=== PATIENT | female | born 1960 | race African-American/Black ===

== ENCOUNTER 2017-05-15 09:41 | Emergency (ER) | payer BC, SELFPAY ==
[2017-05-15] MEDS ORDERED: Lidocaine 1% w/Epinephrine 1:100K 20 ML VIAL ONE (11:19)
== END 2017-05-15 12:21 | disposition home or self-care (01) ==
LOC: ERS 09:41
DX: L02.416 Cutaneous abscess of left lower limb (principal); L03.116 Cellulitis of left lower limb; I10 Essential (primary) hypertension
CPT/HCPCS: 10060; J2001

== ENCOUNTER 2017-05-19 16:12 | Inpatient (IN) | payer BC ==
[2017-05-19] MEDS ORDERED: ISOVUE-370 76%-LOCM 1 ML ONE (16:48)
[2017-05-19 16:53] LABS: #Basophils 0.1 thou/uL (0.0-0.2); #Eosinphils 0.1 thou/uL (0.0-0.7); #Lymphocytes 1.5 thou/uL (1.20-3.40); #Monocytes 0.6 thou/uL (0.11-0.59); #Neutrophils 4.9 thou/uL (1.40-6.50); %Eosinophils 1.4 % (0.0-10.0); %Lymphocytes 21.6 % (21.0-51.0); %Monocytes 7.8 % (0.0-10.0); %Neutrophils 68.2 % (42.0-75.0); Hemoglobin 12.6 g/dL (12.0-16.0); Mean Corpuscular HGB CONC 33.2 g/dL (32.0-36.0); Mean Corpuscular Hemoglobin 29.4 pg (27.0-31.0); Mean Corpuscular Volume 88.6 fl (81.0-99.0); Mean Platelet Volume 8.5 fL (7.4-10.4); Platelet Count 243 thou/uL (130-400); RBC Distribution Width 11.4 % (11.5-14.5); Red Blood Cell (RBC) Count 4.27 mill/uL (4.20-5.40); White Blood Cell (WBC) Count 7.2 thou/uL (4.8-10.8)
[2017-05-19 18:37] LABS: ALT (SGPT) 32 U/L (8-55); AST (SGOT) 27 U/L (5-34); Albumin 4.2 g/dL (3.5-5.0); Alkaline Phosphatase 100 U/L (40-150); Anion Gap 14 mmol/L (10-20); BUN (Urea Nitrogen) 17 mg/dL (9.8-20.1); Bilirubin, Total 0.9 mg/dL (0.2-1.2); Calc. Creatinine Clearance 0 mL/min (70-130); Calcium 9.9 mg/dL (7.8-10.44); Carbon Dioxide 25 mmol/L (22-29); Chloride 104 mmol/L (98-107); Estimated GFR-MDRD Greater than 90; Globulin 3.5 g/dL (2.4-3.5); Glucose 120 mg/dL (70-105); Potassium 3.6 mmol/L (3.5-5.1); Protein, Total 7.7 g/dL (6.0-8.3); Sodium 139 mmol/L (136-145)
[2017-05-19] MEDS ORDERED: Lidocaine 1% w/Epinephrine 1:100K 20 ML VIAL ONE (18:45)
[2017-05-19] MEDS ORDERED: cefTRIAXone\\ROCEPHIN 2 GM in Sodium Chloride 0.9% 100 ML IVPB SCH (19:45)
--- NOTE | 2017-05-19 21:11 | CT ---
CT LEFT THIGH PERFORMED WITH INTRAVENOUS CONTRAST ENHANCEMENT: 05/19/17 HISTORY: Left inner thigh abscess. It is more erythematous and edematous. There are fibromatous changes of the uterus noted. Small inguinal lymph nodes are noted probably reactive. There is edema changes associated with the area of incision and drainage along the medial aspect of t he upper thigh. There does not appear to be any significant fluid collection. There is some air densi ty seen along the tract from the skin surface. There is no deep intramuscular extension. The edema ch anges do extend along the medial aspect of the thigh to mid thigh. IMPRESSION: Patient is status post incision and drainage of a medial thigh abscess. No signs of any significant f luid collection. There are edema changes in this area. POS: GINA
[2017-05-19 21:42] LABS: Bilirubin Small (Negative); Blood, Urine Negative (Negative); Clarity CLEAR (Clear); Glucose, Urine (Dipstick) Negative (Negative); Leukocyte Trace (Negative); Nitrite Negative (Negative); Protein, Urine (Dipstick) Negative (Neg-Trace)
[2017-05-19 21:44] LABS: Bacteria/HPF None Seen HPF (None Seen); Hyaline Casts/LPF 4-6 HYALINE CAST LPF (0-3 Hyaline); Pathc Cast-AUWi Flag 1.21 (0-2.49); RBC/HPF 0-3 HPF (0-3); WBC/HPF 0-3 HPF (0-3)
[2017-05-19 21:46] LABS: Specific Gravity, Urine 1.058 (1.002-1.036)
[2017-05-19 22:47] VITALS: BMI 37.5
--- NOTE | 2017-05-19 23:08 | HP ---
PRIMARY CARE PHYSICIAN: [facility] call admission. REASON FOR ADMISSION: Left thigh abscess and surrounding cellulitis, failed outpatient therapy. HISTORY OF PRESENT ILLNESS: A 57-year-old -[place] female with history of hypertension who w as evaluated at [facility] for left thigh abscess. The patient has problem early this month, she was first time evaluated on 05/14, and subsequently she had re-evaluation on 05/15. She required I and D for large abscess and she was kept on Bactrim and rifampin. She was also given Keflex. The pa katie still has continuous drainage. Today, she went to [facility] for worsening surrounding eryth sabrina and drainage. The patient feels that swelling is reduced, but the erythema is getting worse. Sh e has more pain. She denies any fever or chills. Patient reports that lately she was on Bactrim as well as Cleocin without any improvement, and that is why she was sent to emergency room for further e valuation. REVIEW OF SYSTEMS: The following complete review of systems was negative, unless otherwise mentioned in the HPI or below: Constitutional: Weight loss or gain, ability to conduct usual activities. Sk in: Rash, itching. Eyes: Double vision, pain. ENT/Mouth: Nose bleeding, neck stiffness, pain, te nderness. Cardiovascular: Palpitations, dyspnea on exertion, orthopnea. Respiratory: Shortness of breath, wheezing, cough, hemoptysis, fever or night sweats. Gastrointestinal: Poor appetite, abdom inal pain, heartburn, nausea, vomiting, constipation, or diarrhea. Genitourinary: Urgency, frequenc y, dysuria, nocturia. Musculoskeletal: Pain, swelling. Neurologic/Psychiatric: Anxiety, depressio n. Allergy/Immunologic: Skin rash, bleeding tendency. ALLERGIES: PENICILLIN. CURRENT HOME MEDICATIONS: Cleocin 300 mg 3 times daily, Bactrim-DS 1 tablet twice daily. PAST MEDICAL HISTORY: Hypertension. PAST SURGICAL HISTORY: . PAST PSYCHIATRIC HISTORY: Reviewed and negative. SOCIAL HISTORY: Patient lives at home with the family. No history of tobacco, alcohol, or illicit d rug abuse. FAMILY HISTORY: No strong family history of premature coronary artery disease, stroke, or cancer. EMERGENCY ROOM COURSE: Patient is given vancomycin, Rocephin, and IV fluid. PHYSICAL EXAMINATION: VITAL SIGNS: Currently, blood pressure 154/79, pulse 83, respiratory rate 19, temperature 98.6, satu ration 98% on room air, weight 81.6 kilograms. GENERAL: Patient is currently alert, oriented, in no acute distress. HEAD: Normocephalic, atraumatic. EYES: Pupils round, reactive to light. Extraocular muscles intact. ENT: Oropharynx within normal limits. Moist mucous membranes. No oral lesions. No pharyngeal eryt adenike, no exudate. NECK: Supple, no JVD, no thyromegaly, no carotid bruit, no jugular venous distention. LUNGS: Clear to auscultation without any rhonchi or rales. CARDIAC: S1, S2 regular without any murmur. ABDOMEN: Obesity present. Bowel sounds present. Nontender, nondistended. No organomegaly, no mass . No suprapubic tenderness. BACK: Unremarkable, no CVA tenderness. EXTREMITIES: Upper extremity passive movement of all joints are normal. Lower extremity, 10 x 10-cm inner thigh cellulitis with inner thigh abscess. NEUROLOGIC: Nonfocal examination. SKIN: No skin rash other than cellulitis, inner aspect of the thigh. HEMATOLOGIC: No lymphadenopathy. PSYCHIATRIC: Normal affect. SIGNIFICANT LABORATORY AND DIAGNOSTIC DATA: CT lower extremity done in the emergency room, which jerry ws status post I and D of medial thigh abscess on the left thigh with surrounding cellulitis, small i nguinal lymph node noted. CBC: WBC 7.2, hemoglobin 12.6, platelet 243. Sodium 139, potassium 3.6, chloride 104, carbon dioxide 25, anion gap 14, BUN 17, creatinine 0.78, glucose 120, calcium 9.9. LF T: AST 27, ALT 32, alkaline phosphatase 100. Albumin 4.2. CRP 6.98. Urinalysis: Leukocyte estera se trace. ASSESSMENT AND PLAN: 1. Left thigh cellulitis with abscess, failed outpatient therapy. 2. Hypertension. 3. Suspected urinary tract infection. PLAN: 1. Full admission to medical floor. General surgery consult for evaluation of I&D. Wound care team consultation for wound care and empiric antibiotic therapy with vancomycin and Rocephin. Pain contr ol with morphine. Pharmacy will adjust vancomycin dose and will continue Rocephin 2 grams daily. 2. Send urine culture. We will monitor her vitals and start antihypertensives before discharge. 3. Deep venous thrombosis prophylaxis. Lovenox 40 mg subcutaneously daily. 4. Gastrointestinal prophylaxis. Pepcid 20 mg p.o. b.i.d. 5. Code status: The patient is FULL CODE. Patient does not have any surrogate decision maker. DISPOSITION PLAN: Based on clinical course. Plan of care discussed with the patient in detail in the emergency room.
[2017-05-19] MEDS ORDERED: HYDROcodone/Acetaminophen 10/325 mg Tablet PO PRN (23:26)
[2017-05-19] MEDS ORDERED: hydrALAZINE 20 MG/ML VIAL SLOW IVP PRN (23:26)
[2017-05-19] MEDS ORDERED: Ondansetron ODT 4 MG TAB PO PRN (23:26)
[2017-05-19] MEDS ORDERED: Ondansetron HCl/PF 4 MG/2 ML Vial IVP PRN (23:26)
[2017-05-19] MEDS ORDERED: Senokot 8.6 MG TAB PO PRN (23:26)
[2017-05-19] MEDS ORDERED: Morphine 5 MG/ML SYRINGE SLOW IVP PRN (23:26)
[2017-05-19] MEDS ORDERED: Milk Of Magnesia 30 ML UDCUP PO PRN (23:26)
[2017-05-19] MEDS ORDERED: Zolpidem Tartrate 5 MG TAB PO PRN (23:26)
[2017-05-19] MEDS ORDERED: Acetaminophen 325 MG TAB PO PRN (23:26)
[2017-05-19] MEDS ORDERED: Mag-Al 1200 mg/1200 mg/30 ML UDCUP PO PRN (23:26)
[2017-05-20] MEDS: Enoxaparin Sodium 40 MG/0.4 ML SYRINGE SC SCH (09:43)
[2017-05-20] MEDS: Famotidine 20 MG TAB PO SCH ×2 (09:43→20:55)
--- NOTE | 2017-05-20 11:01 | PDOC.PN ---
- Subjective Encounter Start Date: 05/20/17 Encounter Start Time: 10:59 Ms. Blanton does not have any complaints today. She is being seen in follow-up of left thigh abscess. She notes some continued pain in the area. - Objective Resuscitation Status: Resuscitation Status FULL:Full Resuscitation MAR Reviewed: Yes Vital Signs & Weight: Vital Signs (12 hours) Temp Pulse Resp BP Pulse Ox 05/20/17 08:00 98.1 F 68 18 145/61 H 96 05/20/17 04:47 98.5 F 81 16 129/69 96 05/20/17 01:58 98.2 F 84 16 95 05/20/17 00:00 98.2 F 84 16 123/53 L 96 Result Diagrams: 05/19/17 16:42 05/19/17 16:49 Phys Exam - Physical Examination HEENT: PERRLA Respiratory: no wheezing, no rales, no rhonchi, clear to auscultation bilateral Cardiovascular: RRR, no significant murmur Gastrointestinal: soft, non-tender, positive bowel sounds Musculoskeletal: no edema + abscess on the upper inner left thigh, induration with some warmth Dx/Plan (1) Abscess of left thigh Code(s): L02.416 - CUTANEOUS ABSCESS OF LEFT LOWER LIMB Status: Acute (2) Hypertension Code(s): I10 - ESSENTIAL (PRIMARY) HYPERTENSION Status: Acute - Plan * Abscess of the left thigh- continue Rocephin * Plan is for I&D tomorrow, by Dr. Muñoz * HTN- blood pressure is controlled.
--- NOTE | 2017-05-20 16:49 | CON ---
DATE OF CONSULTATION: 05/20/2017 CHIEF COMPLAINT: Abscess, left thigh. HISTORY OF PRESENT ILLNESS: The patient is a 57-year-old female with a 6-day history of a progressiv e infection left upper inner thigh, it is currently draining, no fever, no previous episodes. PAST MEDICAL HISTORY: Morbid obesity, hypertension. PAST SURGICAL HISTORY: section. MEDICATIONS: Atenolol, hydrochlorothiazide, amlodipine. ALLERGIES: PENICILLIN. FAMILY HISTORY: Mother had a CVA. Father of heart attack. SOCIAL HISTORY: She is single. She works at [employer]. No tobacco or alcohol. PHYSICAL EXAMINATION: VITAL SIGNS: Temperature 98, pulse 68, blood pressure 143/74. GENERAL: Obese female. She is currently eating a regular diet. HEENT: Unremarkable. LUNGS: Clear. HEART: Regular rate and rhythm. ABDOMEN: Soft, obese, nontender. She has a 5 cm swollen abscess in the upper inner left thigh, it i s currently draining through at least 2 sinus tracts. LABORATORY AND X-RAY FINDINGS: Her white count is 7.2, H and H 12 and 37, platelet count of 243. El ectrolytes show elevated glucose at 120, otherwise normal. ASSESSMENT: Left thigh abscess. PLAN: N.p.o. after midnight, I and D tomorrow.
[2017-05-20] MEDS: cefTRIAXone\\ROCEPHIN 2 GM in Sodium Chloride 0.9% 100 ML IVPB SCH (20:57)
[2017-05-21] MEDS ORDERED: Bupivacaine 0.25% HCL 30 ML VIAL ONE (06:48)
[2017-05-21] MEDS ORDERED: Lidocaine 2% w/Epinephrine 1:200K 20 ML VIAL ONE (06:48)
[2017-05-21] MEDS ORDERED: HYDROmorphone 0.5 MG/0.5 ML SYRINGE ONE (07:37)
[2017-05-21] MEDS ORDERED: Fentanyl 100 MCG/2 ML VIAL ONE (07:37)
[2017-05-21] MEDS ORDERED: HYDROcodone/Acetaminophen 10/325 mg Tablet PO PRN (08:28)
--- NOTE | 2017-05-21 08:42 | OP ---
PREOPERATIVE DIAGNOSIS: Abscess, left upper inner thigh. SURGEON: Ziyad Muñoz M.D. PROCEDURE PERFORMED: Incision and drainage and debridement. INDICATIONS: This is a 57-year-old female who came in with an infection in the upper inner thigh selma t was spontaneously draining. FINDINGS: There was about an 8 cm phlegmon of the upper inner thigh with 2 sinus tracts. The specim en contained an infected sebaceous cyst. DESCRIPTION OF PROCEDURE: After informed consent was obtained, patient was taken to the operating ro om and given general endotracheal anesthesia and placed in frogleg position. The area was prepped an d draped in the usual fashion. An elliptical incision was performed. The sinus tracts were excised. There was sebaceous material in the area that was all removed including the wall. Hemostasis achie hiram with electrocautery. The wound was irrigated and then wound was packed open with Betadine gauze. Patient tolerated the procedure well and transferred to recovery in good condition.
[2017-05-21] MEDS: Famotidine 20 MG TAB PO SCH ×2 (09:10→20:26)
[2017-05-21] MEDS: Enoxaparin Sodium 40 MG/0.4 ML SYRINGE SC SCH (09:10)
[2017-05-21] MEDS ORDERED: Ketorolac Tromethamine 30 MG/ML VIAL ONE (12:12)
[2017-05-21] MEDS ORDERED: Dexamethasone 20 MG/5 ML VIAL ONE (12:12)
[2017-05-21] MEDS ORDERED: Ondansetron HCl/PF 4 MG/2 ML Vial ONE (12:12)
[2017-05-21] MEDS ORDERED: Propofol 200 MG/20 ML VIAL ONE (12:12)
[2017-05-21] MEDS ORDERED: Lidocaine 1% PF 5 ML VIAL ONE (12:12)
--- NOTE | 2017-05-21 13:44 | PDOC.PN ---
- Subjective Encounter Start Date: 05/21/17 Encounter Start Time: 13:41 Ms. Blanton was seen today in follow-up. She does not have any complaints. She says she is feeling much better now. - Objective Resuscitation Status: Resuscitation Status FULL:Full Resuscitation MAR Reviewed: Yes Vital Signs & Weight: Vital Signs (12 hours) Temp Pulse Resp BP BP Pulse Ox 05/21/17 12:00 161/78 H 05/21/17 09:05 98.2 F 76 16 167/77 H 96 05/21/17 05:00 98.3 F 79 18 159/83 H 95 Weight Admit Weight 212 lb Weight 212 lb I&O: 05/20/17 05/21/17 05/22/17 06:59 06:59 06:59 Intake Total 150 Balance 150 Result Diagrams: 05/19/17 16:42 05/19/17 16:49 Phys Exam - Physical Examination HEENT: PERRLA Respiratory: no wheezing, no rales, no rhonchi, clear to auscultation bilateral Cardiovascular: RRR, no significant murmur, no rub Gastrointestinal: soft, non-tender, positive bowel sounds Musculoskeletal: no edema Dx/Plan (1) Abscess of left thigh Code(s): L02.416 - CUTANEOUS ABSCESS OF LEFT LOWER LIMB Status: Acute (2) Hypertension Code(s): I10 - ESSENTIAL (PRIMARY) HYPERTENSION Status: Acute - Plan * Right Thigh Abscess- Continue Rocephin IV * HTN- blood pressure is elevated - will re-start Amlodipine, and Atenolol, can likely re-start HCTZ in a few days * Await the wound culture results.
[2017-05-21] MEDS: cefTRIAXone\\ROCEPHIN 2 GM in Sodium Chloride 0.9% 100 ML IVPB SCH (20:25)
[2017-05-22] MEDS: Enoxaparin Sodium 40 MG/0.4 ML SYRINGE SC SCH (08:14)
[2017-05-22] MEDS: Atenolol 25 MG TAB PO SCH (08:14)
[2017-05-22] MEDS: Amlodipine 10 MG TAB PO SCH (08:14)
[2017-05-22] MEDS: Famotidine 20 MG TAB PO SCH ×2 (08:14→22:26)
[2017-05-22] MEDS: HYDROcodone/Acetaminophen 10/325 mg Tablet PO PRN ×3 (08:19→22:32)
--- NOTE | 2017-05-22 12:19 | PDOC.PN ---
- Subjective Encounter Start Date: 05/22/17 Encounter Start Time: 10:40 -: old records requested/rev Pt seen and examined, chart reviewed in its entirety, this is my first visit with this patient Vac placed earlier, glenn well, awaiting outpatient VAC rx. Cortes working on arranging PCP for patient to follow up with as an outpatinet no F/C, no N/V/d/C, glenn abx well 10 point ROS performed and neg for all systems except as above - Objective Resuscitation Status: Resuscitation Status FULL:Full Resuscitation MAR Reviewed: Yes Vital Signs & Weight: Vital Signs (12 hours) Temp Pulse Resp BP BP Pulse Ox 05/22/17 08:24 98.3 F 75 18 158/69 H 90 L 05/22/17 08:14 76 158/69 H 05/22/17 08:00 98.3 F 75 18 90 L 05/22/17 04:00 97.5 F L 80 16 143/79 H 97 Weight Admit Weight 212 lb Weight 212 lb I&O: 05/21/17 05/22/17 05/23/17 06:59 06:59 06:59 Intake Total 150 Balance 150 Result Diagrams: 05/19/17 16:42 05/19/17 16:49 Radiology Reviewed by me: Yes EKG Reviewed by me: Yes Phys Exam - Physical Examination Constitutional: NAD HEENT: PERRLA, moist MMs, sclera anicteric, oral pharynx no lesions Neck: no nodes, no JVD, supple, full ROM Respiratory: no wheezing, no rales, no rhonchi, clear to auscultation bilateral Cardiovascular: RRR, no significant murmur, no rub Gastrointestinal: soft, non-tender, no distention, positive bowel sounds Musculoskeletal: no edema, pulses present, edema present Neurological: non-focal, normal sensation, moves all 4 limbs Lymphatic: no nodes Psychiatric: normal affect, A&O x 3 Skin: no rash, normal turgor, cap refill <2 seconds Deviation from normal: VAC left medial thigh with trackpad to anterior, protected with mepilex Dx/Plan - Plan cont current plan of care, continue antibiotics, out of bed/ambulate, DVT proph w/lovenox * . home on po abx when VAC approved, follow up on cultures
[2017-05-22] MEDS: Sulfameth/Trimethoprim DS 800-160mg TAB PO SCH ×2 (14:41→22:26)
--- NOTE | 2017-05-22 14:55 | PQF ---
RACHEL CASPER PRADIP HINDS [id number] CLINICAL DOCUMENTATION IMPROVEMENT CLARIFICATION FORM: ICD-10 Updated PLEASE DO AN ADDENDUM TO THE PROGRESS NOTE WITH ANY DOCUMENTATION UPDATES OR ADDITIONS AND CARRY THROUGH TO DC SUMMARY. THANK YOU. DATE: 05-22-17 ATTN: DR. HINDS Please exercise your independent, professional judgment in responding to the clarification form. Clinical indicators are provided on the bottom of this form for your review Please check appropriate box(s) to clarify if the following diagnosis has been ruled in our ruled out: UTI [ ] Ruled in diagnosis [ ] Continue to treat [ ] Resolved [ ] Ruled out diagnosis [ ] Cannot rule out diagnosis [ ] Other diagnosis [ ] Unable to determine For continuity of documentation, please document condition throughout progress notes and discharge summary. Thank You. CLINICAL INDICATORS - SIGNS / SYMPTOMS / LABS LABS: UA - TRACE LEUKOCYTE ESTERASE H&P: SUSPECTED UTI RISK FACTORS ER: PATIENT REPORTS URINE IS ORANGE D/T ABX SHE HAS BEEN TAKING FOR WOUND BACTRIM AND CLEOCIN WITHOUT IMPROVEMENT TREATMENTS H&P: SEND URINE CULTURE - NO GROWTH AT 48 HOURS MAR: VANCOMYCIN IV 2-10 ROCEPHIN IV 2-10 / 2-12 BACTRIM DS PO 2-13 THANK YOU, JENNY (This form is maintained as a part of the permanent medical record) 2015 [employer]. All Rights Reserved Jenny Mcdonough RN, BS [email or web address]
[2017-05-22] MEDS: Cefdinir 300 MG CAP PO SCH (22:26)
[2017-05-23] MEDS: Enoxaparin Sodium 40 MG/0.4 ML SYRINGE SC SCH (08:31)
[2017-05-23] MEDS: Cefdinir 300 MG CAP PO SCH (08:32)
[2017-05-23] MEDS: Sulfameth/Trimethoprim DS 800-160mg TAB PO SCH (08:33)
[2017-05-23] MEDS: Atenolol 25 MG TAB PO SCH (08:33)
[2017-05-23] MEDS: Famotidine 20 MG TAB PO SCH (08:33)
[2017-05-23] MEDS: Amlodipine 10 MG TAB PO SCH (08:34)
[2017-05-23 12:25] VITALS: BP 144/74; TEMP 97.8
--- NOTE | 2017-05-23 14:26 | DIS ---
DATE OF ADMISSION: 05/19/2017 DATE OF DISCHARGE: 05/23/2017 DISCHARGE DIAGNOSES: 1. Left medial thigh cellulitis. 2. Status post incision and drainage of a left medial thigh abscess. 3. No urinary tract infection, ruled out. 4. Essential hypertension. 5. Nonhealing surgical wound. CONSULTATIONS: General surgery, Dr. Ziyad Muñoz on 05/20/2017. PROCEDURES: Incision and drainage and VAC placement, 05/21/2017. HISTORY AND PHYSICAL: Ms. Blanton is a 57-year-old female who presented in the [facility] department on 05/19/2017 for evaluation of left thigh abscess and cellulitis. She has been see n at an outside urgent care clinic around 05/14/2017 and on 05/15/2017. She required an I&D for a la rge abscess and was kept on Bactrim and rifampin. She was also given some Keflex. She continued to have some continuous drainage, went to [facility] the day [facility] for worsening and surroun ding erythema and drainage and increased pain. She was subsequently sent to our emergency department for evaluation. Here, she was admitted. We were called. HOSPITAL COURSE: The patient was seen and examined by Dr. Foster in the emergency department. Gene ral Surgery was consulted from the outside. The patient was then started initially on vancomycin, Ro cephin, and patient was admitted to the floor. Overnight, the patient did well and was seen by Dr. Muñoz on 05/20/2017 and prepared for surgery the following day. White blood cell count that was normal on admission and labs were normal on admission. On 05/21/2017, the patient was taken to the operating room for incision and drainage. At that time, she has been on antibiotics for almost 48 hours. Cultures remain negative. VAC was placed on 05/22/2017 and insurance approval for VAC was requested. On 05/23/2017, it was found that her insurance does not cover wound VAC, so arrangements were made fo r her to get the wound VAC that she had for about a week before switching wet to dry dressings. She is otherwise stable for discharge and was then transitioned to oral antibiotics and discharged ho nm in stable condition with outpatient followup. PHYSICAL EXAMINATION: The patient was seen and examined on the day of discharge Discharge plan and disposition were discussed with the patient [id number] at the bedside. DISCHARGE MEDICATIONS: 1. Omnicef 300 mg p.o. b.i.d. for 14 days. 2. Bactrim-DS 1 p.o. t.i.d. for 14 days. 3. HCTZ 25 mg daily. 4. Atenolol 25 mg daily. 5. Amlodipine 10 mg daily. FOLLOWUP APPOINTMENTS: 1. Primary care physician: The patient has none. Daughter was going to establish with one jamie ocasio. 2. Dr. Muñoz within a week. 3. Home health care for dressing changes. I believe she chose [facility]. DISCHARGE DIET: Heart healthy recommended. DISCHARGE ACTIVITY: As tolerated. DISCHARGE CONDITION: Good. DISPOSITION: Being discharged home via private vehicle.
== END 2017-05-23 13:52 | disposition home health service (06) | DRG 571 ==
LOC: ERS 16:12 → T4-B 22:36
PROVIDERS: ADMIT Internal Medicine; ATTEND Internal Medicine
PROC: 0JBM0ZZ Excision of Left Upper Leg Subcutaneous Tissue and Fascia, Open Approach (ICD-10-PCS; principal; 2017-05-21)
DX: L72.3 Sebaceous cyst (principal); L02.416 Cutaneous abscess of left lower limb; E66.01 Morbid (severe) obesity due to excess calories; L03.116 Cellulitis of left lower limb; I10 Essential (primary) hypertension; Z88.0 Allergy status to penicillin; Z68.37 Body mass index [BMI] 37.0-37.9, adult
CPT/HCPCS: 36415; 80053; 81003; 81015; 85025; 86140; 87040; 87070; 87076; 87086; 87205; 96365; 96367; J2270; A4216; J0696; J1100; J1170; J1650; J1885; J2001; J2405; J2704; J3010; J3370; J7050; S0020

== ENCOUNTER 2017-06-13 08:43 | Outpatient (CLI) | payer BC ==
[2017-06-13] MEDS ORDERED: Lidocaine 2% Jelly 5 ML TUBE ONE (09:00)
[2017-06-13] MEDS ORDERED: Sodium Chloride 0.9% 15 ML NEB ONE (09:00)
--- NOTE | 2017-06-13 10:50 | HP ---
HISTORY OF PRESENT ILLNESS: Ms. Kait Blanton is a very pleasant 57-year-old who presents to [facility] for evaluation of a wound of the left medial thigh subsequent to incision and drainage and debridement for a left upper inner thigh abscess on 05/21/2017. Also at the time of surgery, [facility] patient underwent wound VAC placement. The patient underwent the preceding procedure by Dr. Ziyad longoria. The patient states that negative pressure therapy has been discontinued by Home Health. The p atient states that she has been performing wet to dry dressing changes for the wound of her left medi al thigh. Ms. Blanton has no complaints today. She denies any fever or chills. PAST MEDICAL HISTORY: 1. Hypertension. 2. Iron deficiency anemia. PAST SURGICAL HISTORY: 1. x1. 2. Exploratory laparotomy. 3. Incision and drainage and debridement for left upper inner thigh abscess on 05/21/2017. MEDICATIONS: 1. Atenolol. 2. HCTZ. 3. Amlodipine. 4. Multivitamin. ALLERGIES: No known diagnosed allergies. SOCIAL HISTORY: Negative for tobacco or ETOH use. FAMILY HISTORY: Significant for coronary artery disease. The patient states that her father was rafael gnosed with coronary artery disease. PHYSICAL EXAMINATION: VITAL SIGNS: Temperature 97.5, pulse 80, respirations 18, blood pressure 134/63. GENERAL: A 57-year-old female lying on table in examination room in no acute distress. HEENT: Normocephalic, atraumatic. NECK: No nuchal rigidity. CHEST: Clear to auscultation. CARDIOVASCULAR: Regular rate and rhythm. ABDOMEN: Soft. EXTREMITIES: A wound of the left medial thigh is present which measures approximately 6.0 x 1.5 cm. Granulation tissue is present within the wound margins. Necrotic and nonviable tissue present withi n the wound margins was debrided with an excisional full-thickness debridement with the use of a cure tte. No purulent drainage is associated with the wound. No erythema of the skin surrounding the wou nd is present. No maceration of the skin of the periwound is noted. NEUROLOGIC: Grossly nonfocal. ASSESSMENT AND PLAN: 1. Left medial thigh wound subsequent to incision and drainage and debridement for a left upper inne r thigh abscess on 05/21/2017. At the time of surgery, the patient also underwent wound VAC placemen t. As stated above, negative pressure therapy patient states was discontinued by home health and the patient has been performing wet to dry dressing changes for her left medial thigh wound herself. Dr mercado changes of [place] will be initiated today, 4 x 4s and an ABD secured with tape will be util ized as secondary dressings. The patient states she has an appointment to see Dr. Muñoz in the near future. I will see Ms. Blanton again in two weeks. 2. Hypertension. 3. Iron deficiency anemia.
== END 2017-06-13 08:44 | disposition home or self-care (01) ==
LOC: WCC 08:43
PROVIDERS: ATTEND Family Medicine
DX: T81.89XD Other complications of procedures, not elsewhere classified, subsequent encounter (principal); D50.9 Iron deficiency anemia, unspecified; I10 Essential (primary) hypertension
CPT/HCPCS: 11042; 99203; A4218; G0463

== ENCOUNTER 2017-09-18 15:19 | Emergency (ER) | payer BC ==
--- NOTE | 2017-09-18 16:44 | ULT ---
VENOUS DOPPLER ULTRASOUND LEFT LOWER EXTREMITY; 09/18/17 HISTORY: Lower leg edema and pain. TECHNIQUE: Mcallister scale, color flow and spectral doppler imaging of the deep venous system of the left lower extre mity is performed. FINDINGS: There is flow, compression and augmentation noted in the deep veins of the left lower extremity inclu ding the common femoral, femoral, deep femoral, popliteal, posterior tibial and greater saphenous vei ns. IMPRESSION: No evidence of DVT in the left lower extremity. POS: [facility]
== END 2017-09-18 16:12 | disposition home or self-care (01) ==
LOC: ERS 15:19
DX: M25.562 Pain in left knee (principal); I10 Essential (primary) hypertension; Z79.899 Other long term (current) drug therapy

== ENCOUNTER 2017-11-14 13:13 | Emergency (ER) | payer BC ==
--- NOTE | 2017-11-14 14:40 | ULT ---
VENOUS DOPPLER ULTRASOUND OF LEFT LOWER EXTREMITY: Date: 11/14/17 HISTORY: Left lower extremity pain. TECHNIQUE: Mcallister scale ultrasound with color flow and spectral Doppler imaging of the deep venous system of the l eft lower extremity performed. FINDINGS: There is good flow, compression, and augmentation noted in the left common femoral, femoral, deep fem oral, and posterior tibial veins. 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 IMPRESSION: 1. No evidence of deep venous thrombosis in the left lower extremity. 2. Foster's cyst. POS: OFF
== END 2017-11-14 16:01 | disposition home or self-care (01) ==
LOC: ERS 13:13
DX: M71.22 Synovial cyst of popliteal space [Baker], left knee (principal); M79.662 Pain in left lower leg; R60.0 Localized edema; I10 Essential (primary) hypertension; Z79.899 Other long term (current) drug therapy

== ENCOUNTER 2018-01-07 19:31 | Observation (INO) | payer BC ==
[~2018-01-07 19:31] MED LIST: ISOVUE-370 76%-LOCM 1 ML ONE
[2018-01-07 20:28] LABS: #Basophils 0.1 thou/uL (0.0-0.2); #Eosinphils 0.1 thou/uL (0.0-0.7); #Monocytes 0.3 thou/uL (0.11-0.59); #Neutrophils 4.4 thou/uL (1.40-6.50); %Basophils 1.1 % (0.0-1.0); %Eosinophils 1.1 % (0.0-10.0); %Lymphocytes 29.2 % (21.0-51.0); %Monocytes 4.6 % (0.0-10.0); Hemoglobin 12.9 g/dL (12.0-16.0); Mean Corpuscular Hemoglobin 28.6 pg (27.0-31.0); Mean Corpuscular Volume 86.6 fL (78.0-98.0); Platelet Count 258 thou/uL (130-400); RBC Distribution Width 11.7 % (11.5-14.5); Red Blood Cell (RBC) Count 4.51 mill/uL (4.20-5.40); White Blood Cell (WBC) Count 6.8 thou/uL (4.8-10.8)
--- NOTE | 2018-01-07 20:28 | RAD ---
FRONTAL VIEW CHEST: INDICATIONS: Chest pain. COMPARISON: 07/27/2014 FINDINGS: Bilateral perihilar interstitial opacities are seen, without lobar consolidation, effusion, or pneumo thorax. The cardiac silhouette is stable. IMPRESSION: Bilateral interstitial perihilar opacities may relate to bronchiolitis or edema. Correlate clinicall y. Imaging followup may be obtained to confirm resolution. POS: [facility]
[2018-01-07] MEDS ORDERED: Aspirin 325 MG TAB ONE (20:46)
[2018-01-07] MEDS ORDERED: Nitroglycerin 2% Ointment 1 INCH/1 GM Packet ONE (20:50)
[2018-01-07 20:52] LABS: ALT (SGPT) 16 U/L (8-55); AST (SGOT) 16 U/L (5-34); Albumin 4.3 g/dL (3.5-5.0); Alkaline Phosphatase 109 U/L (40-150); Anion Gap 12 mmol/L (10-20); BUN (Urea Nitrogen) 16 mg/dL (9.8-20.1); Bilirubin, Total 0.4 mg/dL (0.2-1.2); CK (CPK) 171 U/L (29-168); Calc. Creatinine Clearance 0 mL/min (70-130); Calcium 8.9 mg/dL (7.8-10.44); Carbon Dioxide 28 mmol/L (22-29); Chloride 106 mmol/L (98-107); Estimated GFR-MDRD Greater than 90; Globulin 3.1 g/dL (2.4-3.5); Glucose 94 mg/dL (70-105); Lipase 18 U/L (8-78); Potassium 3.5 mmol/L (3.5-5.1); Protein, Total 7.4 g/dL (6.0-8.3); Sodium 142 mmol/L (136-145)
[2018-01-07 21:07] LABS: CKMB 1.7 ng/mL (0-6.6); Troponin I Less than 0.010 ng/mL (< 0.028)
[2018-01-07] MEDS ORDERED: Morphine 4 MG/ML VIAL ONE ×2 (22:12)
--- NOTE | 2018-01-07 22:37 | CT ---
CTA CHEST WITH 3D VOLUME RENDERING: INDICATIONS: Chest pain. FINDINGS: There is no large central filling defect of the pulmonary arteries. There is mild atelectasis of eac h lung present. There is no consolidation, effusion, or pneumothorax. The thoracic aorta is normal in caliber. Scattered hyperdensities of the partially imaged liver may relate to cysts, although are incompletely assessed. No acute osseous pathology. IMPRESSION: 1. No acute pulmonary embolus. 2. Incidental note of left adrenal mass, demonstrating stability in volume to a 12/09/2008 CT abdome n examination, at which time the finding demonstrated density compatible with benign adenoma. 3. Probable hepatic cyst formation, although incompletely assessed. POS: [facility]
[2018-01-07] MEDS ORDERED: Acetaminophen 325 MG TAB PO PRN (23:42)
[2018-01-08 00:04] LABS: Troponin I 0.015 ng/mL (< 0.028)
[2018-01-08 00:06] VITALS: BMI 38.9
[2018-01-08 04:40] LABS: #Lymphocytes 1.2 thou/uL (1.20-3.40); #Monocytes 0.4 thou/uL (0.11-0.59); %Basophils 0.3 % (0.0-1.0); %Eosinophils 0.4 % (0.0-10.0); %Lymphocytes 18.5 % (21.0-51.0); %Monocytes 5.8 % (0.0-10.0); %Neutrophils 75.1 % (42.0-75.0); Mean Corpuscular HGB CONC 32.3 g/dL (32.0-36.0); Mean Corpuscular Hemoglobin 28.3 pg (27.0-31.0); Mean Corpuscular Volume 87.5 fL (78.0-98.0); Mean Platelet Volume 8.8 fL (7.4-10.4); Platelet Count 241 thou/uL (130-400); RBC Distribution Width 11.7 % (11.5-14.5); Red Blood Cell (RBC) Count 4.23 mill/uL (4.20-5.40); White Blood Cell (WBC) Count 6.6 thou/uL (4.8-10.8)
[2018-01-08 04:56] LABS: Anion Gap 12 mmol/L (10-20); BUN (Urea Nitrogen) 12 mg/dL (9.8-20.1); Calc. Creatinine Clearance 143 mL/min (70-130); Calcium 9.4 mg/dL (7.8-10.44); Carbon Dioxide 24 mmol/L (22-29); Chloride 106 mmol/L (98-107); Estimated GFR-MDRD Greater than 90; Glucose 131 mg/dL (70-105); Potassium 3.4 mmol/L (3.5-5.1); Sodium 139 mmol/L (136-145)
[2018-01-08] MEDS ORDERED: Aspirin 325 MG TAB PO SCH (09:00)
[2018-01-08] MEDS ORDERED: Enoxaparin Sodium 40 MG/0.4 ML SYRINGE SC SCH (09:00)
[2018-01-08 11:02] LABS: Cardiac Risk 3.6 (Less than 4.5)
--- NOTE | 2018-01-08 11:12 | HP ---
REASON FOR ADMISSION: Chest pain. HISTORY OF PRESENT ILLNESS: The patient gives history of having retrosternal chest pain, which start ed around 10:00 a.m. She was washing and folding clothes. This was associated with sweating. The p ain was 10/10 in intensity. The patient sat down for 15 minutes and this eased off, but then the pat lindsey has had nearly 4 such episodes come on after that. All of this concerned her, hence came to [facility]. No cough or expectoration. No history of fever. No complaints of palpitations, PND or orthopnea. She does mention that she has had a stress test more than 5 years ago, which was normal as far she can remember. PAST MEDICAL AND SURGICAL HISTORY: Hypertension, x1, left leg surgery. CURRENT MEDICATIONS: Hydrochlorothiazide 25 mg daily, atenolol 25 mg daily, Norvasc 10 mg daily. ALLERGIES: Allergic to PENICILLIN. PERSONAL HISTORY: Does not abuse alcohol or drugs. No history of smoking. Works at [employer] . FAMILY HISTORY: Mother is currently in a half-way. She has had a stroke. Father of massiv e [place] at the age of 49 years. CODE STATUS: FULL. Power of dog track kennel manager is her son, Mr. Ephraim López. REVIEW OF SYSTEMS: The following complete review of systems was negative, unless otherwise mentioned in the HPI or below: Constitutional: Weight loss or gain, ability to conduct usual activities. Skin: Rash, itching. Eyes: Double vision, pain. ENT/Mouth: Nose bleeding, neck stiffness, pain, tenderness. Cardiovascular: Palpitations, dyspnea on exertion, orthopnea. Respiratory: Shortness of breath, wheezing, cough, hemoptysis, fever or night sweats. Gastrointestinal: Poor appetite, abdominal pain, heartburn, nausea, vomiting, constipation, or diarr hea. Genitourinary: Urgency, frequency, dysuria, nocturia. Musculoskeletal: Pain, swelling. Neurologic/Psychiatric: Anxiety, depression. Allergy/Immunologic: Skin rash, bleeding tendency. PHYSICAL EXAMINATION: GENERAL: The patient is a 57-year-old female who is currently not in any acute distress. VITAL SIGNS: Blood pressure 186/80, pulse 90 per minute, respiratory rate 16 per minute, temperature 97.6 degrees Fahrenheit, saturating 94% on room air. NECK: Supple, no elevated JVD. HEENT: Eyes: Extraocular muscles intact. Pupils reacting to light. Oral cavity mucous membranes a re moist. No exudates or congestion. CARDIOVASCULAR: S1, S2 heard. Regular rhythm. RESPIRATORY: Air entry 2+ bilateral. No rales or rhonchi. ABDOMEN: Soft, bowel sounds heard. No tenderness, rigidity or guarding. EXTREMITIES: No peripheral edema or calf tenderness. VASCULAR SYSTEM: Peripheral pulses 2+ bilateral, no ischemic ulcerations or gangrene. CENTRAL NERVOUS SYSTEM: No gross focal deficits noted. Patient is alert, awake, oriented well. PSYCHIATRIC: The patient's mood is euthymic. No hallucinations or delusions. LABORATORY DATA AND X-RAY FINDINGS: EKG done shows normal sinus rhythm at 89 beats per minute, no gr oss ST-T wave changes. CT angio chest done shows no pulmonary embolus. There is incidental note of left adrenal mass, which demonstrated stability when compared to prior CAT scan done in 12/2008. Whi te count of 6, H&H is 12 and 39, platelet count 258 with 64% neutrophils, MCV is 86. Electrolytes st able. BUN 16, creatinine 0.7, glucose 94. Liver enzymes within normal limits. Troponin x3 is negat ever. CK-MB 1.7. BNP is 14, albumin is 4.3, lipase is 18. CLINICAL IMPRESSION AND PLAN: The patient will be under observation on telemetry for chest pain, rul e out acute coronary syndrome. We will continue her Norvasc, atenolol and hydrochlorothiazide as bef ore and place her on aspirin 325 mg p.o. daily. We will follow acute coronary syndrome evidence base d protocol. She will have a nuclear stress test done. Patient's symptoms are concerning for acute c oronary syndrome. She is kept n.p.o. for now. If her stress test is normal, she will be discharged home on her current home medications. Also, obtain a lipid profile.
[2018-01-08 12:18] VITALS: BP 165/75; TEMP 98
--- NOTE | 2018-01-08 12:22 | NM ---
CARDIAC SPECT: HISTORY: A 57-year-old female with chest pain and hypertension. TECHNIQUE: A stress-only myocardial perfusion scan was performed following the intravenously administration of 30 mCi Technetium 99m sestamibi. Pharmacologic stress with adenosine was monitored and interpreted b genesis Regalado. FINDINGS: Homogeneous tracer distribution is seen in the myocardial segments on the post-stress images. GATED SPECT LVEF: 68%. WALL MOTION EXAM: Normal. IMPRESSION: Normal post-stress myocardial perfusion scan. POS: GINA
[2018-01-08] MEDS ORDERED: Hydrochlorothiazide 25 MG TAB PO SCH (12:30)
[2018-01-08] MEDS ORDERED: Atenolol 25 MG TAB PO SCH (12:30)
[2018-01-08] MEDS ORDERED: Amlodipine 10 MG TAB PO SCH (12:30)
[2018-01-08] MEDS ORDERED: ADENOSINE 60 MG/20 ML VIAL ONE (15:39)
[2018-01-09] MEDS ORDERED: Atenolol 25 MG TAB PO SCH (09:00)
[2018-01-09] MEDS ORDERED: Amlodipine 10 MG TAB PO SCH (09:00)
[2018-01-09] MEDS ORDERED: Hydrochlorothiazide 25 MG TAB PO SCH (09:00)
--- NOTE | 2018-01-12 18:11 | EKG ---
Test Reason : Blood Pressure : / mmHG Vent. Rate : 089 BPM Atrial Rate : 089 BPM P-R Int : 204 ms QRS Dur : 078 ms QT Int : 380 ms P-R-T Axes : 059 -11 046 degrees QTc Int : 462 ms Normal sinus rhythm Normal ECG Confirmed by ABHILASH BOLIVAR MD ([id number]), editor & co founder DAKOTAH BAILEY ([id number]) on 01/12/2018 6:10:47 PM Referred By: Confirmed By:ABHILASH BOLIVAR MD
== END 2018-01-08 13:49 | disposition home or self-care (01) ==
LOC: ERS 19:31 → 2SW 23:00
PROVIDERS: ADMIT Hospitalist; ATTEND Hospitalist
DX: R07.2 Precordial pain (principal); I10 Essential (primary) hypertension; Z79.899 Other long term (current) drug therapy; Z88.0 Allergy status to penicillin
CPT/HCPCS: 36415; 71045; 71275; 78452; 80048; 80053; 80061; 82550; 82553; 83690; 83880; 84484; 85025; 85379; 90471; 90686; 93005; 93017; 94760; 96374; A9500; G0008; G0378; J0153; J1650; J2270

== ENCOUNTER 2018-01-16 17:04 | Emergency (ER) | payer BC ==
[2018-01-16] MEDS ORDERED: Ketorolac Tromethamine 30 MG/ML VIAL ONE (18:23)
== END 2018-01-16 18:46 | disposition home or self-care (01) ==
LOC: ERS 17:04
DX: M71.22 Synovial cyst of popliteal space [Baker], left knee (principal); G89.29 Other chronic pain; I10 Essential (primary) hypertension; Z79.899 Other long term (current) drug therapy
CPT/HCPCS: 96372; J1885

== ENCOUNTER 2018-02-05 08:40 | Day surgery (SDC) | payer BC, MEDICARE ==
[2018-02-05 09:27] LABS: #Lymphocytes 0.6 thou/uL (1.20-3.40); #Monocytes 0.3 thou/uL (0.11-0.59); #Neutrophils 8.1 thou/uL (1.40-6.50); %Eosinophils 0.1 % (0.0-10.0); %Lymphocytes 6.3 % (21.0-51.0); %Neutrophils 90.6 % (42.0-75.0); Mean Corpuscular HGB CONC 30.5 g/dL (32.0-36.0); Mean Corpuscular Hemoglobin 26.4 pg (27.0-31.0); Mean Corpuscular Volume 86.6 fL (78.0-98.0); Mean Platelet Volume 8.2 fL (7.4-10.4); Platelet Count 278 thou/uL (130-400); RBC Distribution Width 11.5 % (11.5-14.5); Red Blood Cell (RBC) Count 4.91 mill/uL (4.20-5.40)
[2018-02-05 09:49] LABS: ALT (SGPT) 262 U/L (8-55); AST (SGOT) 452 U/L (5-34); Albumin 4.5 g/dL (3.5-5.0); Alkaline Phosphatase 116 U/L (40-150); Anion Gap 13 mmol/L (10-20); BUN (Urea Nitrogen) 11 mg/dL (9.8-20.1); Bilirubin, Total 1.2 mg/dL (0.2-1.2); Calc. Creatinine Clearance 0 mL/min (70-130); Calcium 9.7 mg/dL (7.8-10.44); Carbon Dioxide 27 mmol/L (22-29); Chloride 104 mmol/L (98-107); Estimated GFR-MDRD Greater than 90; Globulin 3.3 g/dL (2.4-3.5); Glucose 139 mg/dL (70-105); Lipase 18 U/L (8-78); Potassium 3.2 mmol/L (3.5-5.1); Protein, Total 7.8 g/dL (6.0-8.3); Sodium 141 mmol/L (136-145)
[2018-02-05 10:01] LABS: CKMB 1.6 ng/mL (0-6.6); Troponin I 0.017 ng/mL (< 0.028)
[2018-02-05 10:40] LABS: PTT 30.6 SEC (22.9-36.1); Prothrombin Time 13.7 SEC (12.0-14.7)
[2018-02-05 10:49] LABS: Bilirubin Negative (Negative); Blood, Urine Negative (Negative); Clarity CLOUDY (Clear); Glucose, Urine (Dipstick) Negative (Negative); Leukocyte Trace (Negative); Nitrite Negative (Negative); Protein, Urine (Dipstick) Negative (Neg-Trace); Specific Gravity, Urine 1.011 (1.002-1.036)
[2018-02-05 10:51] LABS: Bacteria/HPF 1+ HPF (None Seen); Hyaline Casts/LPF 0-3 HYALINE CAST LPF (0-3 Hyaline); Pathc Cast-AUWi Flag 0.43 (0-2.49)
[2018-02-05] MEDS ORDERED: Ketorolac Tromethamine 30 MG/ML VIAL ONE (10:54)
[2018-02-05 10:56] LABS: Renal Epithelial None Seen HPF (0-3); Transitional Epithelial NONE SEEN HPF (0-3)
--- NOTE | 2018-02-05 10:56 | ULT ---
RIGHT UPPER QUADRANT ULTRASOUND: HISTORY: A 57-year-old female with a history of right upper quadrant pain and nausea and vomiting. FINDINGS: Liver echogenicity appears to be within normal limits. There are several shadowing stones within the gallbladder, as well as one nonshadowing opacity, which appears to be attached to the wall, probably a polyp. No gallbladder wall thickening or pericholecystic fluid. The common bile duct is dilated at 0.9 cm. The gallbladder is borderline distended. No significant intrahepatic ductal dilatation. IMPRESSION: Several gallstones within the gallbladder, which is mildly distended, as well as a dilated common stuart e duct, without significant intrahepatic ductal dilatation. In addition to the gallstones, there is probably also a small polyp or adherent stone. No other significant acute process. POS: GINA
--- NOTE | 2018-02-05 14:15 | HP ---
HISTORY OF PRESENT ILLNESS: A 57-year-old black female who presented in the Emergency Room because o f right upper quadrant pain, nausea. Ultrasound revealed gallstones with a 9 mm bile duct, elevated transaminase in upper limits, normal bilirubin. I have been called by Dr. Spaulding. Patient denies pr ior biliary symptoms, although she has been having some bloating and belching in the past. Plan is f or laparoscopic video cholecystectomy, cholangiogram, possible ERCP if indicated. She might be able to be discharged home today pending operative outcome. ALLERGIES: PENICILLIN. TOBACCO: None. ALCOHOL: None. MEDICATIONS: Hydrochlorothiazide, atenolol, amlodipine. PRIMARY CARE PHYSICIAN: Dr. Ceja. PAST MEDICAL HISTORY: Hypertension. PAST SURGICAL HISTORY: . REVIEW OF SYSTEMS: Ten point noncontributory. FAMILY HISTORY: Noncontributory. SOCIAL HISTORY: Patient works for [employer]. She is single, although her son lives with her. PHYSICAL EXAMINATION: VITAL SIGNS: Blood pressure 150/78, respiratory rate 18, heart rate 74. HEENT: Unremarkable. LUNGS: Clear to auscultation. CARDIAC: Regular rate and rhythm without murmur or gallop. ABDOMEN: Soft, tenderness in right upper quadrant with guarding and positive Wang sign. EXTREMITIES: Unremarkable. LABORATORY: White count 9, hemoglobin 13, bilirubin 1.2, AST 452, ALT 262, alkaline phosphatase 116. Ultrasound: Cholelithiasis, mildly distended gallbladder, mildly dilated common bile duct without intrahepatic ductal dilatation, 9 mm bile duct. ASSESSMENT: Cholecystitis, cholelithiasis, possible choledocholithiasis. PLAN: 1. Laparoscopic cholecystectomy, cholangiograms and consultation with Gastroenterology if indicated. Dr. Fitzpatrick is on-call. 2. Hypertension.
[2018-02-05] MEDS ORDERED: Iothalamate Meglumine 60% 50 ML VIAL FS ONE (14:18)
[2018-02-05] MEDS ORDERED: Bupivacaine HCl 0.5%/Epinephrine 1:200,000/PF 30 ml Vial ONE (14:18)
[2018-02-05] MEDS ORDERED: Scopolamine 1.5 mg/72 hour Patch ONE (14:38)
[2018-02-05] MEDS ORDERED: Fentanyl 100 MCG/2 ML VIAL ONE (17:08)
[2018-02-05] MEDS ORDERED: Dexamethasone 20 MG/5 ML VIAL ONE (17:46)
[2018-02-05] MEDS ORDERED: Lidocaine 1% PF 5 ML VIAL ONE (17:46)
[2018-02-05] MEDS ORDERED: PROPOFOL 200 MG/20 ML VIAL ONE (17:46)
[2018-02-05] MEDS ORDERED: PHENYLEPHRINE-NS 100 MCG/ML 10 ML SYRINGE ONE (17:46)
[2018-02-05] MEDS ORDERED: Glycopyrrolate 0.2 MG/ML 5 ML SYRINGE ONE (17:46)
[2018-02-05] MEDS ORDERED: Ondansetron PF 4 MG/2 ML Vial ONE (17:46)
--- NOTE | 2018-02-06 08:30 | OP ---
DATE: 02/05/2018 PREOPERATIVE DIAGNOSES: Acute cholecystitis, cholelithiasis, elevated liver function test, bile duct 9 mm. POSTOPERATIVE DIAGNOSES: Acute cholecystitis, cholelithiasis, elevated liver function test, bile kendra t 9 mm. PROCEDURE: Laparoscopic video cholecystectomy, negative intraoperative cholangiograms. Fluoroscopy used. SURGEON: Jose Paz M.D. ANESTHESIA: General. Local 0.5% Marcaine with epinephrine 30 mL PROCEDURE IN DETAIL: The patient was taken to the operating room under general anesthesia, abdomen w as prepared with ChloraPrep, draped in routine fashion. Because of an infraumbilical periumbilical i ncision, right midclavicular subcostal was incision made and pneumoperitoneum to 15 mmHg were obtaine d with the Veress needle, replacing it with a 5 port and laparoscope inserted. Periumbilical area wa s free of adhesions. Infraumbilical incision was made and a 5 port placed and video laparoscope move d to this port. Right subxiphoid incision made and 11 port placed. Right lateral subcostal incision made and a 5 port placed. Liver appeared to be normal. Gallbladder was distended, thickened wall i nflamed. Fundus of gallbladder grasped and reflected cephalad. Infundibulum grasped and reflected l aterally. Cystic artery and duct dissected free. Critical view obtained. Cystic artery double clip ped proximally. Cystic duct singly clipped on the gallbladder side. Opening made in the cystic duct . Cholangiocath inserted and cholangiogram was obtained using fluoroscopy revealing free flow of cont rast into the duodenum without filling defects and slightly dilated common hepatic, common bile, and left and right hepatic ducts. Cholangiocath removed. Cystic duct stump doubly clipped. Cystic alessandra ry and duct divided. The gallbladder dissected free from edematous attachments to the liver bed, obt aining good hemostasis prior to division of final peritoneal attachments. Gallbladder and contents r emoved and submitted to Pathology. Good hemostasis ensured with the cautery. Irrigant and pneumoper itoneum evacuated. All instruments were removed and all skin incisions approximated with interrupted subdermal 4-0 Monocryl and DermaGlue applied.
--- NOTE | 2018-02-09 23:07 | EKG ---
Test Reason : Blood Pressure : / mmHG Vent. Rate : 086 BPM Atrial Rate : 086 BPM P-R Int : 228 ms QRS Dur : 082 ms QT Int : 420 ms P-R-T Axes : 057 -17 047 degrees QTc Int : 502 ms Sinus rhythm with 1st degree A-V block Possible Left atrial enlargement Septal infarct , age undetermined Prolonged QT Abnormal ECG Confirmed by MAGGI ARGUELLO ([id number]), video editor DAKOTAH BAILEY ([id number]) on 02/09/2018 11:07:07 PM Referred By: Confirmed By:MAGGI ARGUELLO
== END 2018-02-05 18:30 | disposition home or self-care (01) ==
LOC: ERS 08:40 → SDC/OP 18:06
PROVIDERS: ATTEND Specialist
PROC: 0FT44ZZ Resection of Gallbladder, Percutaneous Endoscopic Approach (ICD-10-PCS; principal; 2018-02-05)
PROC: BF131ZZ Fluoroscopy of Gallbladder and Bile Ducts using Low Osmolar Contrast (ICD-10-PCS; principal; 2018-02-05)
DX: K80.12 Calculus of gallbladder with acute and chronic cholecystitis without obstruction (principal); I10 Essential (primary) hypertension; Z79.899 Other long term (current) drug therapy; Z88.0 Allergy status to penicillin
CPT/HCPCS: 36415; 76705; 80053; 81003; 81015; 82553; 83690; 84484; 85025; 85610; 85730; 88304; 93005; 96365; 96366; 96375; J0131; J0670; J1100; J1610; J1885; J1956; J2001; J2405; J2704; J3010; Q9961

== ENCOUNTER 2018-02-11 08:49 | Outpatient (CLI) | payer BC ==
--- NOTE | 2018-02-11 10:44 | MRI ---
MRI LUMBAR SPINE: History: 57-year-old with history of lumbar radiculopathy. M54.16 For the purposes of this dictation, the last freely mobile vertebral body will be considered to be th e L5 vertebral body. All other vertebral bodies numbered according to this. FINDINGS: T12-L1: Unremarkable. L1-2: Minimal facet hypertrophy seen. The central canal and neural foramen are patent. L2-3: There is minimal facet hypertrophy. The central canal and neural foramen are patent. L3-4: There is some mild disc desiccation seen. There is a minimal broad based disc bulge. The centra l canal and neural foramen are patent. L4-5: Disc desiccation is seen. There is bilateral facet hypertrophy and ligamentum flavum hypertroph y seen. There is mild anterolisthesis of L4 on L5. There is a mild broad based disc bulge without lito dence of significant central or neural foraminal narrowing. L5-S1: Unremarkable except for some mild facet hypertrophy. IMPRESSION: Grade I anterolisthesis of L4 on L5. Bilateral facet hypertrophic changes seen at L4-5 and L5-S1. No significant degree of central or neural foraminal narrowing is seen. POS: GINA
== END 2018-02-11 08:50 | disposition home or self-care (01) ==
LOC: BICMRI 08:49
PROVIDERS: ATTEND Orthopaedic Surgery
DX: M54.16 Radiculopathy, lumbar region (principal); M43.16 Spondylolisthesis, lumbar region
CPT/HCPCS: 72148

== ENCOUNTER 2020-12-20 11:58 | Emergency (ER) | payer BC ==
[2020-12-20 12:41] LABS: #Eosinphils 0.1 thou/uL (0.0-0.7); #Monocytes 0.4 thou/uL (0.11-0.59); #Neutrophils 4.2 thou/uL (1.40-6.50); %Basophils 0.2 % (0.0-1.0); %Eosinophils 1.2 % (0.0-10.0); %Neutrophils 62.6 % (42.0-75.0); Hemoglobin 13.7 g/dL (12.0-16.0); Mean Corpuscular HGB CONC 33.9 g/dL (32.0-36.0); Mean Corpuscular Hemoglobin 29.2 pg (27.0-31.0); Mean Corpuscular Volume 86.1 fL (78.0-98.0); Mean Platelet Volume 8.3 fL (7.4-10.4); Platelet Count 266 thou/uL (130-400); RBC Distribution Width 11.7 % (11.5-14.5); Red Blood Cell (RBC) Count 4.68 mill/uL (4.20-5.40); White Blood Cell (WBC) Count 6.7 thou/uL (4.8-10.8)
[2020-12-20 12:52] LABS: ALT (SGPT) 15 U/L (8-55); AST (SGOT) 15 U/L (5-34); Albumin 4.2 g/dL (3.5-5.0); Alkaline Phosphatase 117 U/L (40-110); Anion Gap 11 mmol/L (10-20); BUN (Urea Nitrogen) 14 mg/dL (9.8-20.1); Bilirubin, Total 0.5 mg/dL (0.2-1.2); Calc. Creatinine Clearance 0 mL/min (70-130); Calcium 9.7 mg/dL (7.8-10.44); Carbon Dioxide 29 mmol/L (22-29); Chloride 108 mmol/L (98-107); Globulin 2.9 g/dL (2.4-3.5); Glucose 102 mg/dL (70-105); Lipase 22 U/L (8-78); Potassium 3.7 mmol/L (3.5-5.1); Protein, Total 7.1 g/dL (6.0-8.3); Sodium 144 mmol/L (136-145)
== END 2020-12-20 15:02 | disposition home or self-care (01) ==
LOC: ERS 11:58
DX: R07.89 Other chest pain (principal); M25.512 Pain in left shoulder; I10 Essential (primary) hypertension; R73.03 Prediabetes
CPT/HCPCS: 36415; 71045; 80053; 83690; 84484; 85025; 93005

== ENCOUNTER 2021-01-05 11:53 | Emergency (ER) | payer BC | END 2021-01-05 14:22 | disposition home or self-care (01) | LOC: ERS 11:53 | DX: M54.5 Low back pain (principal); M25.551 Pain in right hip; M25.552 Pain in left hip; R73.03 Prediabetes; I10 Essential (primary) hypertension; Z79.899 Other long term (current) drug therapy; Z79.84 Long term (current) use of oral hypoglycemic drugs | CPT/HCPCS: 99283 ==

== ENCOUNTER 2024-03-07 09:21 | Emergency (ER) | payer MEDICARE, MEDICAID ==
[2024-03-07] MEDS ORDERED: Ondansetron PF 4 MG/2 ML Vial ONE (09:35)
[2024-03-07] MEDS ORDERED: Ketorolac Tromethamine 30 MG (1 mL) VIAL ONE (09:35)
[2024-03-07 09:55] LABS: #Basophils 0.06 10x3/uL (0.0-0.2); %Basophils 0.8 % (0.0-1.0); %Eosinophils 1.1 % (0.0-10.0); %Lymphocytes 27.5 % (21.0-51.0); %Monocytes 5.6 % (0.0-10.0); %Neutrophils 64.7 % (42.0-75.0); Mean Corpuscular HGB CONC 33.3 g/dL (32.0-36.0); Mean Corpuscular Hemoglobin 28.3 pg (27.0-31.0); Mean Platelet Volume 10.2 fL (7.4-10.4); Platelet Count 366 10x3/uL (130-400); RBC Distribution Width 11.9 % (11.5-14.5); Red Blood Cell (RBC) Count 4.59 mill/uL (4.20-5.40)
[2024-03-07 10:10] LABS: ALT (SGPT) 17 U/L (8-55); AST (SGOT) 21 U/L (5-34); Albumin 3.9 g/dL (3.4-4.8); Alkaline Phosphatase 96 U/L (40-110); Anion Gap 15 mmol/L (10-20); BUN (Urea Nitrogen) 13 mg/dL (9.8-20.1); Bilirubin, Total 0.5 mg/dL (0.2-1.2); Calc. Creatinine Clearance 0 mL/min (70-130); Calcium 9.7 mg/dL (7.8-10.44); Carbon Dioxide 25 mmol/L (23-31); Chloride 105 mmol/L (98-107); Estimated GFR 78; Globulin 4.3 g/dL (2.4-3.5); Glucose 98 mg/dL (80-115); Lipase 16 U/L (8-78); Potassium 3.6 mmol/L (3.5-5.1); Protein, Total 8.2 g/dL (5.8-8.1); Sodium 141 mmol/L (136-145)
[2024-03-07 10:23] LABS: Bilirubin Negative (Negative); Blood, Urine Negative (Negative); CAUTI Indications for Culture Pelvic or flank pain; Clarity Turbid (Clear); Glucose, Urine (Dipstick) Normal (Negative); Ketone, Urine Negative (Negative); Leukocyte 75 Leu/uL (Negative); Nitrite Negative (Negative); Protein, Urine (Dipstick) 100 mg/dL (Neg-Trace); RBC/HPF 0-3 HPF (0-3); Specific Gravity, Urine 1.017 (1.002-1.036); Squamous Epithelial 21-50 HPF (0-3); Urobilinogen 3 mg/dL (Less than 2)
[2024-03-07 10:33] LABS: Bacteria/HPF 1+ HPF (None Seen)
[2024-03-07 10:35] LABS: Urine Culture Reflex Yes Yes
[2024-03-07] MEDS ORDERED: cefTRIAXone (ROCEPHIN) 2 GM VIAL ONE (11:15)
[2024-03-07] MEDS ORDERED: Sodium Chloride 0.9% 100 ML ONE (11:16)
== END 2024-03-07 12:00 | disposition home or self-care (01) ==
LOC: ERS 09:21
DX: N10 Acute pyelonephritis (principal); E11.9 Type 2 diabetes mellitus without complications; I10 Essential (primary) hypertension
CPT/HCPCS: 74176; 80053; 81001; 83690; 85025; 87086; 94760; 96374; 96375; 99284; J0696; J1885; J2405